=== PATIENT | female | born 1995 | race American Indian/Alaskan Native ===

== ENCOUNTER 2023-11-22 13:18 | Emergency (ER) | payer SELFPAY ==
[~2023-11-22] VITALS: Ht 152.4 cm; Wt 95.5 kg
[~2023-11-22 13:18] MED LIST: FLOMAX 0.40.4 MG/CAP PO; PERCOCET 325 MG1 TA2 PO
[2023-11-22 13:31] VITALS: TEMP 98
[2023-11-22] MEDS ORDERED: NATURAL IRON65 MG (13:31)
[2023-11-22] MEDS ORDERED: Acetaminophen 500 MG TAB PO ONE (14:00)
[2023-11-22] MEDS ORDERED: Ibuprofen 400 MG TAB PO ONE (14:00)
[2023-11-22 15:40] VITALS: BP 120/80; PULSE 74
== END 2023-11-22 15:48 | disposition home or self-care (01) ==
LOC: COL.ER 13:18
DX: M25.512 Pain in left shoulder (principal); Z87.828 Personal history of other (healed) physical injury and trauma; Z98.890 Other specified postprocedural states; W10.9XXA Fall (on) (from) unspecified stairs and steps, initial encounter

== ENCOUNTER 2024-02-11 07:59 | Emergency (ER) | payer SELFPAY ==
[~2024-02-11] VITALS: Ht 152.4 cm; Wt 95.5 kg
[~2024-02-11 07:59] MED LIST changes: +NATURAL IRON65 MG
[2024-02-11 08:08] VITALS: TEMP 97.9
[2024-02-11] MEDS ORDERED: Pantoprazole 40 MG in NS 10 ML IV ONE (08:30)
[2024-02-11] MEDS ORDERED: Ondansetron 4 MG/2 ML VIAL IV ONE (08:30)
[2024-02-11] MEDS ORDERED: NS 1,000 ML IV ONE (08:30)
[2024-02-11 08:55] LABS: BASO % 0.3 % (0.0-2.0); EOS # 0.1 K/mm3 (0.0-0.7); EOS % 1.9 % (0.0-4.0); GRAN # 4.7 K/mm3 (1.4-6.5); GRAN % 63.4 % (42.2-75.2); HEMOGLOBIN 10.7 g/dl (12.5-16.0); LYMPH % 26.9 % (20.0-51.0); MEAN CELL VOLUME 72 fl (80.0-100.0); MEAN CORPUSCULAR HEMOGLOBIN 21 pg (27-31); MEAN CORPUSCULAR HGB CONC 30 g/dl (33.0-37.0); MEAN PLATELET VOLUME 9.5 fl (7.4-10.4); MONO # 0.5 K/mm3 (0.1-0.6); MONO % 7.2 % (1.7-9.3); PLATELET COUNT 436 K/mm3 (130-400); RED BLOOD COUNT 5.01 M/mm3 (4.10-5.30)
[2024-02-11 09:01] LABS: HEMATOCRIT 36.2 % (37.0-47.0)
[2024-02-11 09:04] LABS: ALBUMIN 3.5 g/dL (3.5-5.0); BILIRUBIN,TOTAL 0.5 mg/dL (0.2-1.2); C-REACTIVE PROTEIN 0.42 mg/dL (0.00-0.50); CALCIUM 9.3 mg/dL (8.4-10.2); CREATININE, serum 0.72 mg/dL (0.57-1.11); POTASSIUM 3.9 mEq/L (3.5-4.5); TOTAL PROTEIN 6.7 g/dl (6.2-8.1)
[2024-02-11] MEDS ORDERED: PROTONIX 40MG T40 MG PO (09:25)
[2024-02-11 09:54] VITALS: BP 135/62; PULSE 56
== END 2024-02-11 09:54 | disposition home or self-care (01) ==
LOC: COL.ER 07:59
PROVIDERS: Emergency Medicine
DX: K92.0 Hematemesis (principal); R05.9 Cough, unspecified; F17.200 Nicotine dependence, unspecified, uncomplicated
CPT/HCPCS: C9113; J2405; J7030

== ENCOUNTER 2024-06-21 03:16 | Emergency (ER) | payer SELFPAY ==
[~2024-06-21] VITALS: Ht 152.4 cm; Wt 100.0 kg
[~2024-06-21 03:16] MED LIST changes: +PROTONIX 40MG T40 MG PO
[2024-06-21 03:17] VITALS: TEMP 97.6
[2024-06-21] MEDS ORDERED: Ketorolac 30 MG/ML VIAL IM ONE (03:45)
[2024-06-21] MEDS ORDERED: NAPROSYN500 MG PO (03:57)
[2024-06-21 04:07] VITALS: BP 142/94; PULSE 80
[2024-06-21] MEDS ORDERED: CRUTCHES MC (04:08)
== END 2024-06-21 04:07 | disposition home or self-care (01) ==
LOC: COL.ER 03:16
DX: S93.401A Sprain of unspecified ligament of right ankle, initial encounter (principal); W01.0XXA Fall on same level from slipping, tripping and stumbling without subsequent striking against object, initial encounter; X50.1XXA Overexertion from prolonged static or awkward postures, initial encounter; Y93.01 Activity, walking, marching and hiking; Y92.009 Unspecified place in unspecified non-institutional (private) residence as the place of occurrence of the external cause
CPT/HCPCS: J1885